=== PATIENT | male | born 1950 ===

== ENCOUNTER 2020-12-24 06:00 | Outpatient (RCR) | payer MEDICARE, SELFPAY | END 2021-01-06 23:59 | disposition home or self-care (01) | LOC: MPT 06:00 | PROVIDERS: PCP Internal Medicine; Referring Provider Nurse Practitioner Family; Visit Provider Nurse Practitioner Family | DX: I69.90 Unspecified sequelae of unspecified cerebrovascular disease (principal) | CPT/HCPCS: 97110; 97140; 97161 ==

== ENCOUNTER 2020-12-24 06:00 | Outpatient (RCR) | payer MEDICARE, SELFPAY | END 2021-01-06 23:59 | disposition home or self-care (01) | LOC: MST 06:00 | PROVIDERS: PCP Internal Medicine; Referring Provider Nurse Practitioner Family; Visit Provider Nurse Practitioner Family | DX: I63.9 Cerebral infarction, unspecified (principal) | CPT/HCPCS: 92507; 92523 ==

== ENCOUNTER 2021-01-07 06:00 | Outpatient (RCR) | payer MEDICARE, SELFPAY | END 2021-02-05 23:59 | disposition home or self-care (01) | LOC: MST 06:00 | PROVIDERS: PCP Internal Medicine; Referring Provider Nurse Practitioner Family; Visit Provider Nurse Practitioner Family | DX: I69.30 Unspecified sequelae of cerebral infarction (principal) | CPT/HCPCS: 92507 ==

== ENCOUNTER 2021-01-07 06:00 | Outpatient (RCR) | payer MEDICARE, SELFPAY | END 2021-02-05 23:59 | disposition home or self-care (01) | LOC: MPT 06:00 | PROVIDERS: PCP Internal Medicine; Referring Provider Nurse Practitioner Family; Visit Provider Nurse Practitioner Family | DX: M25.50 Pain in unspecified joint (principal) | CPT/HCPCS: 97110 ==

== ENCOUNTER 2021-02-06 06:00 | Outpatient (RCR) | payer MEDICARE, SELFPAY | END 2021-03-08 23:59 | disposition home or self-care (01) | LOC: MST 06:00 | PROVIDERS: PCP Internal Medicine; Referring Provider Nurse Practitioner Family; Visit Provider Nurse Practitioner Family | DX: I69.30 Unspecified sequelae of cerebral infarction (principal) | CPT/HCPCS: 92507 ==

== ENCOUNTER 2021-03-09 06:00 | Outpatient (RCR) | payer MEDICARE, SELFPAY | END 2021-04-07 23:59 | disposition home or self-care (01) | LOC: MST 06:00 | PROVIDERS: PCP Internal Medicine; Referring Provider Nurse Practitioner Family; Visit Provider Nurse Practitioner Family | DX: I69.328 Other speech and language deficits following cerebral infarction (principal) | CPT/HCPCS: 92507 ==